=== PATIENT | female | born 1970 | race Caucasian/White ===

== ENCOUNTER 2023-10-25 12:41 | Emergency (ER) | payer BC, SELFPAY ==
[2023-10-25 12:42] VITALS: BP 106/71; PULSE 79; RESP 19; TEMP 36.6; O2SAT 98
--- NOTE | 2023-10-25 12:45 | EX.ED.CRITCA ---
HPI History of Present Illness Chief Complaint: Allergic Reaction Detail of Chief Complaint: Anaphylactic reaction to hymenoptera envenomation Informant: patient Onset/Context/Timing Onset: Hours (Stung approximate 1 hour ago) Context: Sudden Onset Timing: Continuous Quality: Lip swelling, tongue swelling, throat swelling, generalized rash and lighth Location: Generalized Mechanism/Context: Yes other Current Severity: Severe Maximum Severity: Severe Worsened by: Hymenoptera envenomation Relieved by: Not applicable Associated Symptoms Associated Symptoms: abdominal pain, chest pain, chills, cough, fever, vomiting, diarrhea and palpitations Narrative Narrative: Patient is a 52-year-old woman. She was hiking. She was stung by something left calf. She started having itching of her eyes and swelling. She then developed swelling of her lip, tongue throat. She then noticed she had a rash. Rash is pruritic. She denies prior reaction. She is on no beta-gladis. She has no significant past medical history. Prior similar symptoms: No Recent Illness/Hospitalization: No PFSH PFSH Medical History no medical history Home Medications ?Medication ?Instructions ?Recorded ?Last Taken ?Type epinephrine 0.3 mg/0.3 mL 0.3 mg (0.3 mL) IM UD PRN 10/25/23 Unknown Rx injection, auto-injector (EpiPen anaphylaxis #2 ea 2-Bacilio) Allergy/AdvReac Type Severity Reaction Status Date / Time bee venom protein (honey Allergy Severe Anaphylaxis Verified 10/25/23 12:49 bee) (bee sting) Surgical History no surgical history Social History Smoking Status: Never smoker [facility] ED Constitutional Constitutional ED: Denies chills, fever(s) or subjective Eyes Eyes: Denies blurry vision or change in vision ENT ENT ED: Reports other Details: Swelling of lip, tongue and throat ; Denies rhinorrhea or sore throat Cardiovascular Cardiovascular: Denies chest pain or palpitations Respiratory/Chest Respiratory/Chest: Denies cough, dyspnea or dyspnea on exertion Gastrointestinal Gastrointestinal: Reports nausea; Denies abdominal pain, constipation, diarrhea or vomiting Musculoskeletal Musculoskeletal: Denies arthralgias or myalgias Integumentary Reports rash Neurologic Neurologic: Denies headache(s) or paresthesias Psychiatric Psychiatric: Denies anxiety Hematologic/Lymphatic Hematologic/Lymphatic: Denies easy bleeding or easy bruising EXAM Physical Exam Const Vital Signs: 10/25/23 12:42 10/25/23 13:42 10/25/23 14:00 Temperature 97.8 F 97.8 F Temperature Source Tympanic Temporal Pulse Rate 79 52 L 58 L Respiratory Rate 19 H 13 16 Blood Pressure 106/71 113/69 113/69 Blood Pressure Mean 82 83 83 Pulse Ox 98 98 98 Oxygen Delivery Method Room Air Room Air 10/25/23 15:00 Temperature Temperature Source Pulse Rate 67 Respiratory Rate 18 Blood Pressure 104/67 Blood Pressure Mean 79 Pulse Ox 97 Oxygen Delivery Method Room Air Positive well nourished and well developed Constitutional Narrative: Patient appears in no obvious distress. General Appearance ED: well developed; Negative for pallor HEENT HEENT Narrative: There is evidence of angioedema swelling of the tongue and lip. Uvula appears normal. normocephalic and atraumatic; Negative for cyanosis of lips/distal nose Eyes PERRL and EOMs intact bilaterally General Eye ED: Negative for pale conjunctiva or scleral icterus Neck full ROM, no lymphadenopathy, supple and no JVD Neck Narrative: Trachea is midline. There is no stridor. There is no dysphonia. Resp Resp Narrative: Normal with no wheezing, rales or rhonchi Cardio regular rate, regular rhythm, S1 normal heart sound, S2 normal heart sound and no murmurs GI non-tender and non-distended Auscultation: normoactive bowel sounds Extremity Extremity Narrative: Urticarial rash Neuro oriented x3 and CN's II-XII intact bilaterally Sensorium / Orientation: alert Speech: speech normal Gait (Neuro): normal gait Psych mental status grossly normal Skin General Skin Exam: Negative for jaundice or pallor Lesions: no lesions Rashes: No no rashes Trauma: Negative for abrasion MDM MDM MDM Narrative Medical decision making narrative: Patient with generalized anaphylactic reaction with allergic angioedema. Will treat with epinephrine, Benadryl, Solu-Medrol and Pepcid. Patient was told to be observed for minimum 3 to 4 hours. She was placed on the monitor. She is placed on a pulse ox. Treatment and Re-Evaluation Narrative: Patient was reassessed at 1315. Her lips and tongue are no longer swollen. Her rash is minimally visible. She states she feels much better. Heart is regular. Rate is normal. Lungs are clear to auscultation. Patient was reassessed at 1347. She states she feels back to normal. The only abnormality noted is mild angioedema of her upper eyelids. There is no rash. There is no angioedema. Trachea is midline. There is no dysphonia. Lungs are clear to auscultation. Heart is regular. Rate is normal. Is no murmur, gallop or rub. Patient was reexamined at 03/08/2000. There is slight swelling of her upper eyelids. She requested the epinephrine prescription go to the [facility] outpatient pharmacy. Patient was reassessed at 1546. Her eyelid swelling has resolved. Will discharge to home. Critical Care Time Critical Care Time: Yes Critical care time (excluding procedures): 30-74 minutes (31), Including time spent: (History, physical, documentation, treatment for anaphylactic reaction and allergic angioedema, multiple reexaminations), Discussing w/Patient &/or Family/Building Construction Foreman and Performing Direct Patient Care at Bedside Discharge Plan Triage Chief Complaint: Allergic Reaction ED Provider: Abiodun Sellers Dx/Rx/DC Orders Clinical Impression: Anaphylactic reaction, Allergic angioedema Instructions: ED General Allergic Reactions, ED Anaphylaxis Prescriptions: New epinephrine [EpiPen 2-Bacilio] 0.3 mg/0.3 mL auto-injector 0.3 mg IM UD PRN (Reason: anaphylaxis) Qty: 2 0RF Rx Instructions: for 2 doses Primary Care Provider: SIENA WILLIS Referrals: [facility] Doctor,Out of [Non-Staff] - Activity Restrictions/Additional Instructions: Administer if you are stung by a bee, wasp etc. You should carry your EpiPen with you at all times. Print Language: Jamaican Disposition Disposition: Home, Self Care
[2023-10-25 12:46] VITALS: BMI 23.5
[2023-10-25] MEDS: Epi Pen (EQUIV) 0.3 MG Syringe IM (12:46)
[2023-10-25] MEDS: DiphenhydrAMINE 50 MG/ML Syringe 25 MG IV (12:47)
[2023-10-25] MEDS: MethylPREDNISolone 125 MG/2 ML Vial IV (12:47)
[2023-10-25] MEDS: Famotidine 200 MG/20 ML MDV 20 MG in 0.9% Normal Saline (Pres. free 8 ML 300 MG IV (12:56)
[2023-10-25 13:42] VITALS: BP 113/69; PULSE 52; RESP 13; TEMP 36.6; O2SAT 98
[2023-10-25 14:00] VITALS: BP 113/69; PULSE 58; RESP 16; O2SAT 98
[2023-10-25 15:00] VITALS: BP 104/67; PULSE 67; RESP 18; O2SAT 97
--- NOTE | 2023-10-25 15:49 | EDS_ITS ---
HPI History of Present Illness Chief Complaint: Allergic Reaction [facility] Medical History no medical history Home Medications ?Medication ?Instructions ?Recorded ?Last Taken ?Type epinephrine 0.3 mg/0.3 mL 0.3 mg (0.3 mL) IM UD PRN 10/25/23 Unknown Rx injection, auto-injector (EpiPen anaphylaxis #2 ea 2-Bacilio) Allergy/AdvReac Type Severity Reaction Status Date / Time bee venom protein (honey Allergy Severe Anaphylaxis Verified 10/25/23 12:49 bee) (bee sting) Surgical History no surgical history Social History Smoking Status: Never smoker EXAM Physical Exam Const Vital Signs: 10/25/23 12:42 10/25/23 13:42 10/25/23 14:00 Temperature 97.8 F 97.8 F Temperature Source Tympanic Temporal Pulse Rate 79 52 L 58 L Respiratory Rate 19 H 13 16 Blood Pressure 106/71 113/69 113/69 Blood Pressure Mean 82 83 83 Pulse Ox 98 98 98 Oxygen Delivery Method Room Air Room Air 10/25/23 15:00 Temperature Temperature Source Pulse Rate 67 Respiratory Rate 18 Blood Pressure 104/67 Blood Pressure Mean 79 Pulse Ox 97 Oxygen Delivery Method Room Air Discharge Plan Triage Chief Complaint: Allergic Reaction ED Provider: Abiodun Sellers Dx/Rx/DC Orders Clinical Impression: Anaphylactic reaction, Allergic angioedema Instructions: ED General Allergic Reactions, ED Anaphylaxis Prescriptions: New epinephrine [EpiPen 2-Bacilio] 0.3 mg/0.3 mL auto-injector 0.3 mg IM UD PRN (Reason: anaphylaxis) Qty: 2 0RF Rx Instructions: for 2 doses Primary Care Provider: SIENA WILLIS Referrals: [facility] Doctor,Out of [Non-Staff] - Activity Restrictions/Additional Instructions: Administer if you are stung by a bee, wasp etc. You should carry your EpiPen with you at all times. Print Language: Moh[place] Disposition Disposition: Home, Self Care
[2023-10-25 16:00] VITALS: BP 108/64; PULSE 70; RESP 16; TEMP 36.9; O2SAT 99
== END 2023-10-25 16:04 | disposition home or self-care (01) ==
PROVIDERS: Emergency Provider Emergency Medicine; Visit Provider Emergency Medicine
DX: T78.3XXA Angioneurotic edema, initial encounter (principal); T63.441A Toxic effect of venom of bees, accidental (unintentional), initial encounter; Y93.01 Activity, walking, marching and hiking
CPT/HCPCS: 96372; 96374; 96375; 99283; J7040; J3490